=== PATIENT | female | born 1955 | race Caucasian/White ===

== ENCOUNTER 2019-12-14 11:16 | Emergency (ER) | payer OTHER, SELFPAY ==
[2019-12-14 11:17] VITALS: BP 158/85; PULSE 78; RESP 18; TEMP 36.6; O2SAT 98; BMI 36.0
--- NOTE | 2019-12-14 11:25 | RAD_ITS ---
STUDY: X-RAY - RIGHT SHOULDER REASON FOR EXAM: Female, 64 years old. right shoulder pain after a fall TECHNIQUE: 4 view(s) of the shoulder. COMPARISON: None. FINDINGS: Normal glenohumeral articulation. There is degenerative arthrosis of the acromioclavicular joint without inferior osseous spur formation. Normal acromion. Normal humeral head and visualized proximal humerus. The soft tissue structures are unremarkable. Normal visualized pulmonary apex. RAD/Shoulder min 2 Views IMPRESSION: No acute findings Electronically Signed: Navin Wang DO at 11:57 EST Tel , Service support ,
--- NOTE | 2019-12-14 11:58 | ED.VISSUMM ---
- ER Visit Summary Date of Service: 12/14/19 Chief Complaint: Fall at work yesterday with right shoulder pain and decreased range of motion History of Present Illness: The patient is a 64 F healthy with no significant past medical history other than anxiety and prior cholecystectomy, thyroidectomy and hysterectomy. 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 She try to catch herself when she fell landing on her extended arm and since that time is had right shoulder pain and decreased range of motion. She did not hit her head. No LOC. Denies other complaints. She has no prior right shoulder injury or surgery. She is never had any rotator cuff problems. Physical Examination: Older female no acute distress vital signs stable afebrile. H EENT exam unremarkable. Traumatic nontender. Pupils round reactive light. No facial trauma. C-spine nontender. Lungs clear to auscultation. Heart regular rhythm no murmur. Chest wall nontender. Abdomen soft nontender. Extremities left upper and both lower extremities are nontender with normal range of motion, motor strength and sensation. Left shoulder has mild tenderness worse when she tries to move it. There is no gross bony deformity. Clavicles intact. 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 Normal touch sensation of the hand. Normal radial pulse. She is unable to raise her left arm at all. She makes a good attempt. She has pain with passive or active range of motion she is unable to keep the arm abductor. Clinically by exam she has a rotator cuff tear. Test Results: Right shoulder x-ray multiple views read by myself shows no acute abnormality. No fracture or dislocation. Emergency Department Course and Treatment: History and exam are consistent with a right rotator cuff tear. I explained the patient and her this cannot be diagnosed on plain x-ray. She will need orthopedic follow-up and an MRI. She was given Slaughter here for pain. Treatment Plan: Follow-up with orthopedics. Most likely will need an MRI of the right shoulder. Slaughter for pain. Ice. Disposition: Discharge Impression: Acute fall and injury at work Right rotator cuff tear Worker's Comp. injury This note was generated with IDxation software. It may contain incorrect words, spelling, and punctuation that were not noted in review of the chart prior to signing ED Disposition - Plan for ED Patient: Referrals: Rodrick Ordaz MD [Primary Care Provider] -
--- NOTE | 2019-12-14 12:02 | DCINST.ED_ITS ---
ED Disposition - Plan for ED Patient: Disposition: Home or Assisted Living Instructions: Rotator Cuff Tear Prescriptions: Hydrocodone Bitart/Apap 5-325 [[place] 5MG-325MG] 1 - 2 tab PO Q4H PRN PRN 7 Days #20 tab PRN Reason: Pain Prescription Printed Referrals: Junaid Mcdowell MD [STAFF PHYSICIAN] - As soon as possible Additional Instructions: Call follow-up with your orthopedist soon as possible. Clinically you have a right rotator cuff tear. They will need an MRI to make specific diagnosis. If this is the case this will need surgically repaired. [place] for pain as needed. Plenty of fluids and fiber to prevent constipation. Otherwise you may use Motrin also.
[2019-12-14] MEDS: HYDROcodone Bitartrate/Apap 5/325 Tablet PO (12:11)
== END 2019-12-14 12:21 | disposition home or self-care (01) ==
PROVIDERS: Emergency Provider Emergency Medicine; PCP Family Medicine
DX: S46.011A Strain of muscle(s) and tendon(s) of the rotator cuff of right shoulder, initial encounter (principal); W01.0XXA Fall on same level from slipping, tripping and stumbling without subsequent striking against object, initial encounter; Y93.9 Activity, unspecified; Y92.219 Unspecified school as the place of occurrence of the external cause; Y99.0 Civilian activity done for income or pay; F41.9 Anxiety disorder, unspecified; Z79.899 Other long term (current) drug therapy; Z90.49 Acquired absence of other specified parts of digestive tract
CPT/HCPCS: 73030; 99283

== ENCOUNTER 2024-05-04 14:00 | Outpatient (RCR) | payer MEDICARE, SELFPAY ==
--- NOTE | 2024-03-24 07:13 | HP.OTEVAL_ITS ---
Patient's Visit Information Visit Information Visit Information: WES BUSTOS is a 68 year old F, referred to Occupational Therapy by GISELLE Dsouza, with a diagnosis of right 1st cmc osteoarthritis. Date of Evaluation: 03/23/24 Occupational Therapist: Baylee Fallon, OTR/Adeel, CHT Subjective Subjective: This 68 year old female was seen for OT eval with dx of right unilateral primary osteoarthritis of first carpometacarpal joint. pt states she has had pain for a number of years. States she did talk to ortho to see what could be done. After talking with she decided to have sx. pt has sx on February 19. 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 ADLs Comments: pt states her dtr and her have been assisting her pt does have tremor in bilateral hands- more in left than right Pain right hand: Current Pain Intensity: 2 Pain Intensity Range: 0 and 4 ROM Wrist: right 35/15 left 65/60 CMC: right 10 left 15 MP: right 10 left 45 IP: right 10 left 70 Strength Strength Comments: will test later date Sensation Sensation Comments: around incision Quick DASH-Disab of Arm,Shoulder& Hand Quick DASH Score: 70.4525 Goals Goal:100% adherence to protocol: Yes Comment: CMC arthroplasty Goal:Daily scar massage when approriate: Yes Goal:ROM equal to unaffected hand: Yes Goal:Enterprise Architect Manager/Pinch strength at least 75% of unaffected hand: Yes Comment: will not initiate until week 6 or other beck specified by Goal:No pain with affected hand use: Yes Goal:Full use of affected hand in daily activities including work: Yes Rehabilitation General Assessment: pt arrives 4 weeks 4 days following a right CMC arthroplasty. pt is in need of custom orthosis to provide support and protection to allow for healing. Pt limited with use of right hand with ADLs and IADLs. Pt would benefit from skilled OT services 1-2 x week for 8 weeks. Today therapist luis m. custom thumb spica orthosis placing pt in sight PA to increase IP flexion within orthosis- pt ed. on short arch wrist ROM as well as support of CMC allowing slow gentle ROM of IP and MP. Therapist ed. pt to avoid extending thumb as she has a tendency to hyper ext at MPJ. Therapist asl ed. pt on scar mtg and edema control. pt demo understanding and agree to POC Rehabilitation Potential: Good Anticipated Interventions Anticipated Interventions: A/AAROM/PROM, Strengthening, Edema Control, Scar Care, Triggerpoint Release, Sensory Retraining, Modalities, Orthoses, Joint Prot ection/Energy Conservation, Ergonomic Education, Fine Motor Coord/Jerrod, Education re assistive Equipment, Education re Diagnosis, Caregiver Training and Home Program Visit Plan General Plan: Week 3 Begin scar mtg Begin Short arch wrist ROM ( pain free) week 4 Begin MP and IP thumb flexion and extension with cmc SUPPORTED OK for Full wrist ROM Week 6 Begin gentle thumb CMC ROM PROM of wrist Pre-luis m hand based thumb orthosis of pts choice for daytime Begin retraining of stable CMC position. 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 Week 7 20-30* of MP flexion is adequate No HYPEREXTENSION at the MP IF there is less than 20-30* of MP flexion, can begin gentle PROM for MP flexion only supporting CMC Week 10 if pt is progressing with finger and wrist motion and is able to demonstrate ability to maintain a stable thumb, may begin hand strengthening. If thumb stability in not achieved at this time * HOLD * on strengthening until week 12 s/p ALL Strengthening is to be performed as tolerated and pain free TEXT: Thank you for the opportunity to evaluate your patient. For Medicare and Medicare HMO plans, please review the plan of care and approve it. It will need to be FAXED BACK to us at [phone] for Medicare purposes. Please let me know if there are questions or concerns regarding this plan of care. Physician Signature: Date:
--- NOTE | 2024-06-23 10:26 | HP.OTDCSUM_ITS ---
Discharge Summary D/C Summary: It has been my pleasure to treat WES BUSTOS under orders from GISELLE Dsouza, for the diagnosis of right 1st cmc osteoarthritis for a total of 11 visit(s). Please see the following information for a summary of their discharge status. Overall Improvement % Improvement: 90 Objective Objective/Function: Wrist R: 60/65 Wrist L: 65/65 Coach Wirer R: 52# Coach Wirer L: 65# Tripod R: 6# Tripod L: 11# Lateral R: 7# Lateral L: 10# Pincer R: 6# Pincer L: 10# Goals Patient Goals: Regain Mobility, Use Hand/Wrist/Arm Normally Again and Be More Independent in ADLS Goal:100% adherence to protocol: Yes Goal Progress: Goal Met Goal:Daily scar massage when approriate: Yes Goal Progress: Goal Met Goal:ROM equal to unaffected hand: Yes Goal Progress: Goal Met Goal:Coach Wirer/Pinch strength at least 75% of unaffected hand: Yes Goal Progress: Goal Met Goal:No pain with affected hand use: Yes Goal Progress: Goal Met Goal:Full use of affected hand in daily activities including work: Yes Goal Progress: Goal Met Plan Plan: Continue POC: CHART CAN BE discharged. D/C Information d/c sentence: If there are questions or concerns regarding this patient's occupational therapy, please fell free to call me at [phone]. Thank you for the referral of this patient. Sincerely, Baylee Fallon, OTR/L, CHT
== END 2024-05-04 19:00 | disposition home or self-care (01) ==
LOC: OT 14:00
PROVIDERS: PCP Family Medicine; Referring Provider Physician Assistant Surgical; Visit Provider Physician Assistant Surgical
DX: M18.11 Unilateral primary osteoarthritis of first carpometacarpal joint, right hand (principal)
CPT/HCPCS: 97035; 97110; 97166; 97530

== ENCOUNTER → 2025-03-24 | Outpatient (CLI) | payer MEDICARE, SELFPAY ==
--- NOTE | 2025-03-24 07:40 | RAD_ITS ---
EXAM: Single and double contrast esophagram. CLINICAL HISTORY: Dysphagia. COMPARISON: None. TECHNIQUE: Single and double contrast esophagram. FINDINGS: Recurrent mid to distal esophageal spasm is seen. No area of persistent narrowing is noted. A widely patent esophagogastric junction was noted. A very small sliding-type hiatal hernia was noted. During the time of this examination, gastroesophageal reflux was not elicited. Limited imaging of the stomach and duodenum demonstrates no abnormality. Satisfactory passage of a 13 mm barium tablet into the stomach was noted. RAD/Esophagus Dual Contrast IMPRESSION: 1. Very small sliding-type hiatal hernia. 2. Recurrent mid to distal esophageal spasm. 3. Additional findings as noted. Reading Location: [place] [id number]
== END | disposition home or self-care (01) ==
LOC: RAD 07:39
PROVIDERS: PCP Student in an Organized Health Care Education/Training Program; Referring Provider Otolaryngology; Visit Provider Otolaryngology
DX: R13.10 Dysphagia, unspecified (principal)
CPT/HCPCS: 74221

== ENCOUNTER 2025-05-13 13:00 | Outpatient (RCR) | payer MEDICARE, SELFPAY ==
--- NOTE | 2025-03-15 12:07 | HP.PTEVAL_ITS ---
Patient's Visit Information Visit Information Visit Information: WES BUSTOS is a 69 year old F referred to Physical Therapy by Dr. Hair Lion MD with a diagnosis of abnormalities of gait. Date of Evaluation: 03/15/25 Physical Therapist: Amor Griggs, KEYONAT, OCS, CSCS Visit Plan Frequency: 2x /Week Duration: 2 Months Plan: 2x/week for 4-8 weeks for IE HEP: VOR H and V seated 60 sec then head turns 10x fast all 5x/day with pics, also reviewed balance safety with HO and poiinters needing to use wh walker and turning on lights, sitting in shower etc. Please treat with: 1. progression of home head movement ex 2. teach dynamic balance ex and static foam/ec ex to HEP as safety allows. 3. general strength ex for LE, wt shifts, posture to I with pics. Subjective Subjective: Dtr and grddtr present. My balance is off. It has been off since last June gradually. Had therapy last fall but did not help much. Used cane last fall but now needs walker. Gets waves of dizzyness one time per day for less than minute usually when standing still, not often sitting. Has to stand still and let it past. Family may grab her. Wave feels like lightheadedness and almost blacking out but does not. Doctors do not have reasons, Had brain MRI which was an old small stroke and unrelated. Had a neck MRI but no results for another month. No meds. Saw heart doctor and had heart monitor and no reason found for this. Outdoors is worse on uneven ground. No neuropathy. Sleep is normal but never great. 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 No regular exercises, short walks. Lives with and uses wh walker to get around on one floor. One step to enter which is not a problem. Dtr says she does have Alzheimers. Plenty of grab bars. Basic aDLs: dresses self, showers self, turns in shower and can get dizzy, Bathroom self. Objective Objective: Walks with wh walker into PT slow but mod I 200 feet. Trasnfer bed and chair I, no dizzyness. Steps reciprocal with one rail up and step to down with railing and lacks FW weight shift. Lacks FW trasnfer on chair stand to so requires UE or VC. cervical aROM is limited in B rotation with some discomfort 45 degrees and ext to 40 no pain. UE AROM WFL and without pain, 3+/5 strength - B hallpike ahmet - roll test Oculomotor: no nystagmus with gaze or had shake - skew eye deviation - ocular tilt - head thrust normal pursuit and saccades, feels weird with scaades H. VOR is slightly dizzy and slow recovering quick. hesitant to move head too quick. Overall patient is slow to move and shift weight and appears afraid to move quickly or shift. Requires wh walker. MSQ: no positions make her dizzy. Movees slowly. Balance/Special Test Scores Functional Gait Assessment Score: 12 % Disability: 60.0000 CATSIB Score (Max score 120 seconds): 74 Lower Extremity Functional Score: 30 Goals Goal 1:: I appropriate general, balance and VOR/head movement ex to minimize future problems Goal Time Frame: 6-8 Weeks Goal 2:: FGA score 22/30 to minimize fall risk Goal Time Frame: 6-8 Weeks Goal 3:: romberg ec 30 seconds Goal Time Frame: 6-8 Weeks Goal 4:: Confidence in amb ulation shifting weight to get out of chair and up steps without UE usage but for stability. Goal Time Frame: 6-8 Weeks Goal 5:: LEFS score 50 Goal Time Frame: 6-8 Weeks Rehabilitation Potential Physical Therapy Diagnosis: imbalance and fear and sedentarism limiting overall function comfort and safety Rehabilitation Potential: Fair Anticipated Interventions Patient/Client Instruction: Educate patient on: Condition and Plan of Care For the Purpose of:: To improve nutrient delivery to tissue, To improve muscle performance and motor function, To increase tolerance to activity/condition/position, To improve ability of physical actions for home/community/work/leisure, To improve gait and locomotor functions and To improve safety Therapeutic Exercise to Include: Strength training, Balance training and Postural training Comment: vestibular and weight shifting For the Purpose of:: To improve nutrient delivery to tissue, To improve muscle performance and motor function, To increase tolerance to activity/condition/position, To improve ability of physical actions for home/community/work/leisure, To improve gait and locomotor functions and To improve safety Text: Thank you for the opportunity to evaluate your patient. For Medicare and Medicare HMO plans, please review the plan of care and approve it. It will need to be FAXED BACK to us at [phone] for Medicare purposes. For Medicare only, by signing this I certify the plan of care. Please let me know if there are questions or concerns regarding this plan of care. Physician Signature: Date:
--- NOTE | 2025-05-13 13:55 | HP.PTDCSUM ---
Discharge Summary D/C summary: It has been my pleasure to treat WES BUSTOS referred by Dr. Hair Lion MD, with the diagnosis of abnormalities of gait for a total of 14 visit(s). Discharge Date: 05/13/25 Please see the following information for a summary of their discharge status. Subjective Subjective: Sick all week with Ecoli. Doing HEP regularly beefore she was sick. I am getting around Ok with wh walker. gets tunneling now and then and will have an MRI as she may be having ministrokes. Pain Left Wrist: Pain Intensity (Out of 10): 6 knees: Pain Intensity (Out of 10): Unrated Overall Improvement % Improvement: 75 Objective Objective/Function: FGA improving romberg improving but still poor confidence due to tunneling possibly unrelated. Otherwise is to use wh walker at all times. Goals Goal 1:: I appropriate general, balance and VOR/head movement ex to minimize future problems Goal Progress: Goal Met Goal 2:: FGA score 22/30 to minimize fall risk Goal Progress: Progressing Goal 3:: romberg ec 30 seconds Goal Progress: Progressing Goal 4:: Confidence in amb ulation shifting weight to get out of chair and up steps without UE usage but for stability. Goal Progress: Goal Met Goal 5:: LEFS score 50 Goal Progress: Progressing Plan Plan: d/c D/C Information Discharge Comments: Pt to continue HEP and will have MRI and see eyee specialist. d/c sentence: If there are questions or concerns regarding this patient's physical therapy, please feel free to call me at [phone]. Thank you for the referral of this patient. Sincerely, Amor Griggs, DPT, OCS, CSCS Balance/Gait/Functional tests Balance/Special Test Scores Functional Gait Assessment Score: 21 % Disability: 30.0000 CATSIB Score (Max score 120 seconds): 52 Lower Extremity Functional Score: 43 Improvement % Improvement: 75
== END 2025-05-13 19:00 | disposition home or self-care (01) ==
LOC: PT 13:00
PROVIDERS: PCP Student in an Organized Health Care Education/Training Program; Referring Provider Psychiatry & Neurology Neurology; Visit Provider Psychiatry & Neurology Neurology
DX: R26.89 Other abnormalities of gait and mobility (principal)
CPT/HCPCS: 97110; 97162; 97164; 97530